=== PATIENT | female | born 1940 | race Caucasian/White ===

== ENCOUNTER → 2020-11-26 12:03 | Outpatient (CLI) | payer MEDICARE, SELFPAY ==
--- NOTE | 2020-11-26 | DI.MRI.S_ITS ---
PROCEDURE: MR BRAIN (IAC) WWO CON INDICATIONS: Unspecified sensorineural hearing loss TECHNIQUE: Noncontrast sagittal T1 spin echo, axial FLAIR, axial gradient echo, axial diffusion and ADC through the brain. Axial thin-slice 3D CISS, coronal TruFISP, axial T1 spin echo with fat saturation through the internal auditory canals. After the administration of contrast, thin slice axial and coronal T1 spin echo with fat saturation through the internal auditory canals, and axial T1 spin echo with fat saturation through the brain. COMPARISON: [facility], MR, BRAIN (IAC) W AND WO CONTRAST, 09/04/2008, 10:00. FINDINGS: Image quality: Excellent. Cerebellopontine angles: No cerebellopontine angle masses. Inner ear structures appear normally formed. No suspicious enhancement in the internal auditory canal or along the course of the 7th cranial nerve. CSF spaces: Ventricles are normal in size and shape. No extra-axial fluid collections. Basal cisterns are patent. Brain: No intracranial bleeds or mass effects. Brush-white matter interface is intact. There is diffuse thickening of the dura overlying the cerebral hemispheres, new since the prior examination. There is no evidence of nodularity. Diffusion weighted images demonstrate no acute ischemic insults. Brainstem appears normal. Normal intravascular flow voids are present. Skull and face: Calvarial marrow signal is normal. Orbits appear normal. Sinuses: There is a high T1 intensity retention cyst within the central sphenoid sinus, new since the prior examination. Mastoids are clear. IMPRESSION: 1. Diffuse dural thickening and enhancement. Differential considerations include intracranial hypotension, granulomatous processes such as sarcoidosis, tuberculosis, and Wiley's granulomatosis, as well as lymphoma, and metastatic disease. 2. Sinus disease. Dictated by: Won Gilmore M.D. on 11/26/2020 at 13:43 Approved by: Won Gilmore M.D. on 11/26/2020 at 13:48
== END ==
PROVIDERS: Referring Provider Otolaryngology; Visit Provider Otolaryngology
DX: H90.5 Unspecified sensorineural hearing loss (principal); J32.9 Chronic sinusitis, unspecified
CPT/HCPCS: 70553